=== PATIENT | female | born 1975 | race Caucasian/White ===

== ENCOUNTER 2016-06-20 16:05 | Emergency (ER) | payer MEDICAID ==
[2016-06-20] MEDS ORDERED: HYDROmorphone 2 MG/ML Syringe IM ONE (16:09)
[2016-06-20] MEDS ORDERED: Ketorolac 60 MG/2 ML SDV IM ONE (16:10)
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
== END 2016-06-20 16:31 | disposition home or self-care (01) ==
LOC: LB.ED 16:05
DX: T81.9XXA Unspecified complication of procedure, initial encounter (principal); F32.9 Major depressive disorder, single episode, unspecified; F17.210 Nicotine dependence, cigarettes, uncomplicated; Z98.890 Other specified postprocedural states; Z98.51 Tubal ligation status; Z88.0 Allergy status to penicillin
CPT/HCPCS: J1170; J1885; 96372; 99283-25

== ENCOUNTER 2017-03-26 20:23 | Emergency (ER) | payer MEDICAID ==
[2017-03-26] MEDS ORDERED: Acetaminophen/oxyCODONE 325-5 MG Tab ONE (20:40)
[2017-03-26 20:41] VITALS: BP 144/97
[2017-03-26] MEDS ORDERED: cefTRIAXone 1 GM Vial IM ONE (21:09)
--- NOTE | 2017-04-01 00:07 | ER ---
HISTORY OF PRESENT ILLNESS: A 41-year-old lady here with complaints of dental pain that is severe and swelling with drainage. The patient had her 6 front teeth pulled from the upper jaw last Tuesday which is several days ago. The patient states that she has been in pain since but more severely over the last couple of days. She has noticed more swelling in this part of her mouth, and she states that she is miserable. OBJECTIVE: GENERAL APPEARANCE: The patient is awake and alert. She is uncomfortable. VITAL SIGNS: Reviewed. They are normal. ORAL EXAM: The patient has significant swelling of the upper gum line where the previous dental extractions happened. By everting her upper lip slightly, there is moderate swelling all through this upper gum area. There is drainage as well that is slightly blood tinged coming from the holes where the teeth had been removed. This area is very tender to even light touch. DIAGNOSIS: An oral infection secondary to extraction of several teeth. TREATMENT PLAN: The patient will be given Toradol 60 mg IM. I will send her home with Percocet as well as antibiotics. The patient is to utilize a very soft diet and follow up with her dentist within the next day or two if her symptoms are not significantly improving. The patient has no further questions. CRS/MODL /[id number]
== END 2017-03-26 21:20 | disposition home or self-care (01) ==
LOC: LB.ED 20:23
DX: T81.4XXA Infection following a procedure, initial encounter (principal); K04.7 Periapical abscess without sinus
CPT/HCPCS: 96372; 99282; A9270; J0696

== ENCOUNTER 2017-08-27 01:28 | Emergency (ER) | payer SELFPAY ==
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
[2017-08-27 06:01] VITALS: BP 138/80
--- NOTE | 2017-08-28 22:54 | CT ---
DATE OF SERVICE: 08/27/2017 CLINICAL DATA: Possible syncope. UNENHANCED BRAIN CT: Multislice axial acquisition was performed. No priors. No masses or mass effect. No intracranial hemorrhage. No evidence of acute or subacute infarct. No osseous abnormalities. IMPRESSION: No acute intracranial abnormalities. [id number] [facility]
== END 2017-08-27 02:17 | disposition home or self-care (01) ==
LOC: LB.ED 01:28
DX: F43.0 Acute stress reaction (principal); F17.210 Nicotine dependence, cigarettes, uncomplicated; Z79.899 Other long term (current) drug therapy
CPT/HCPCS: 70450; 99283; 99285-25

== ENCOUNTER 2017-08-27 20:25 | Emergency (ER) | payer SELFPAY ==
[2017-08-27] MEDS ORDERED: Ketorolac 60 MG/2 ML SDV IM ONE (20:40)
[2017-08-27 21:21] VITALS: BP 133/119
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
== END 2017-08-27 20:55 | disposition home or self-care (01) ==
LOC: LB.ED 20:25
DX: S20.211A Contusion of right front wall of thorax, initial encounter (principal); F17.210 Nicotine dependence, cigarettes, uncomplicated; Z79.899 Other long term (current) drug therapy; Z88.0 Allergy status to penicillin; Z98.84 Bariatric surgery status; W19.XXXA Unspecified fall, initial encounter
CPT/HCPCS: 96372; 99283; A0425; A0429; J1885; 99282

== ENCOUNTER 2017-09-22 17:56 | Emergency (ER) | payer BC ==
[2017-09-22] MEDS: HYDROmorphone 2 MG/ML Syringe IVPUSH ONE ×2 (18:14→18:50)
[2017-09-22] MEDS ORDERED: Sodium Chloride 0.9% 10 ML Syringe FLUSH PRN (18:31)
[2017-09-22] MEDS ORDERED: Ondansetron 4 MG/2 ML SDV IVPUSH ONE (18:32)
[2017-09-22 18:43] VITALS: BP 129/67
[2017-09-22] MEDS ORDERED: Ondansetron 4 MG/2 ML SDV ONE (19:03)
--- OUTSIDE RECORDS SUMMARY | 2017-09-26 06:28 | XMSREPORT | Summary of Care ---
:1975 Author Organization and [facility] Address [address] [place] [address] Phone Care Team Providers Name Role Phone Ade Crews ESTRELLITA Primary Care Provider Stacey Shay MD Attributed Provider Reason for Visit Reason Comments Abdominal Pain pt states she has had right upper quad pain for the last week. went to the MD today and had a CT done today showing a gallbladder with sludge but no stone. Encounter Details Date Type Department Care Team Description 09/22/2017 - Hospital Encounter [place] Arielle Sander Rivas DO [address] [place] [address] Calculus of 09/24/2017 [facility] Dallin Huntley MD [address] [place] [address] gallbladder without Surg Unit cholecystitis [address] [place] [address] Allergies Active Allergy Reactions Severity Noted Date Comments Penicillin Other (Specify in Medium 05/21/2009 Patient unsure how she Comments) reacts to this. Had medalert bracelet as a child. as of this encounter Medications Prescription Sig. Disp. Refills Start Date End Date Status hydrOXYzine (ATARAX) Take one 10/05/2016 Active 25 mg tablet tablet nightly as needed for itching. DULoxetine (CYMBALTA) TAKE 1 1 08/17/2017 Active 60 mg capsule CAPSULE BY MOUTH ONCE A DAY cyclobenzaprine Take 1 tablet 30 tablet 0 09/24/2017 Active (FLEXERIL) 10 mg (10 mg) by 9 tabletIndications: mouth 3 times Chest wall pain a day naproxen (NAPROSYN) Take 1 tablet 180 tablet 4 09/24/2017 Active 500 mg (500 mg) by 9 tabletIndications: mouth Every 8 Chest wall pain hours as needed for moderate pain ibuprofen (MOTRIN) Take 800 mg 4 03/08/2016 Suspended 800 mg tablet by mouth 3 8 times a day as needed traMADol (ULTRAM) 50 2 11/02/2016 Discontinued mg tablet 8 gabapentin 2 10/21/2016 Discontinued (NEURONTIN) 400 mg 8 capsule cyclobenzaprine TAKE ONE 3 08/17/2017 Suspended (FLEXERIL) 10 mg TABLET BY 8 tablet MOUTH NIGHTLY as of this encounter Active Problems Problem Noted Date Calculus of gallbladder without cholecystitis 09/23/2017 Cholelithiases 09/23/2017 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 I reviewed single vision reading vs. Bifocal. Copy of prescription given. Pelvic pain in female 10/18/2012 Fibroids 11/22/2009 as of this encounter Social History Tobacco Use Types Packs/Day Years Used Date Current Every Day Smoker Cigarettes 0.25 Smokeless Tobacco: Never Used Comments: not ready Alcohol Use Drinks/Week oz/Week Comments No Sex Assigned at Date Recorded Not on file as of this encounter Last Filed Vital Signs Vital Sign Reading Time Taken Blood Pressure 100/59 09/24/2017 8:22 AM CDT Pulse 77 09/24/2017 8:22 AM CDT Temperature 36.9 C (98.5 F) 09/24/2017 8:22 AM CDT Respiratory Rate 20 09/24/2017 6:00 AM CDT Oxygen Saturation 93% 09/24/2017 8:22 AM CDT Inhaled Oxygen Concentration - - Weight 88.5 kg (195 lb 1.7 oz) 09/22/2017 11:55 PM CDT Height 163 cm (5' 4.17") 09/22/2017 11:55 PM CDT Body Mass Index 33.31 09/22/2017 11:55 PM CDT in this encounter Functional Status Functional Status Response Date of Assessment Is the person deaf or does he/she have serious difficulty No 09/22/2017 hearing? Is this person blind or does he/she have difficulty No 09/22/2017 seeing even when wearing glasses? Do you have difficulty with walking, balance, climbing Yes 09/23/2017 stairs, or had a fall in the last 3 months? Does the patient have difficulty dressing or bathing? No 09/23/2017 Because of a physical, mental, or emotional condition; No 09/23/2017 does this person have difficulty doing errands alone such as visiting a doctor's office or shopping? Cognitive Status Response Date of Assessment Because of a physical, mental, or emotional condition; No 09/23/2017 does this person have serious difficulty concentrating, remembering, or making decisions? as of this encounter Discharge Instructions The following attachments cannot be sent through Care Everywhere.GALLSTONES, WHAT ARE (DANISH)GALLSTONES, DISCHARGE INSTRUCTIONS (DANISH)PAIN, MEASURING YOUR (DANISH)in this encounter Progress Notes Dallin Valles MD - 09/24/2017 10:14 AM CDTFormatting of this note may be different from the original. DAILY PROGRESS NOTE Susana Meza is a 42yr old female admitted on 09/22/2017. SUBJECTIVE Pain is essentially unchanged. No nausea or vomiting. Tolerating solid food well. Does not think that any of her medications have really made much difference. White blood count remains normal. Total bilirubin remains normal at 0.2. OBJECTIVE Current Vital Signs Temp: 98.5 F (36.9 C) BP: 100/59 Pulse: 77 O2 Device: Room Air Resp: 20 Pain Ratin (out of 10) Weight: 88.5 kg (195 lb 1.7 oz) SpO2: 93 % Vitals Min/Max Last 24 Hours Vital Signs Min/Max (last 24 hours) Flowsheet Row Name Min Max Temp 97.6 F (36.4 C) 99 F (37.2 C) BP: Systolic 100 127 BP: Diastolic 59 79 Pulse 63 77 Resp 16 20 SpO2 93 % 99 % MAP (mm Hg) 76 mm Hg 99 mm Hg Intake and Output Last 24 Hours 09/23 0700 - 09/24 0659 In: 1495 Out: - Physical Exam General Appearance: alert, well appearing, and in no distress, oriented to person, place, and time Mental Status: alert, oriented to person, place, and time, normal mood, behavior , speech, dress, motor activity, and thought processes Chest: Patient remains exquisitely tender at the costal margin overlying the ribs and less so on theabdominal wall. This is hyperesthetic and tender to even light touch. Abdomen: Essentially soft. She has migratory pain on examination with even gentle palpation. Thereis no rigidity. No peritonitis. Mayo sign is negative. Diagnostics and Labs Labs (Last day) 09/24/17619 - 09/24/17619 CBC 09/24/17619 CBC WBC 4.0-11.0 (K/uL) 7.4 09/24/17619 - 09/24/17619 CHEMISTRY 09/24/17619 CHEMISTRY Bilirubin Total 0.2-1.2 (mg/dL) 0.2 Relevant diagnostic, laboratory and radiological studies have been reviewed in the Electronic Medical Record. ASSESSMENT & PLAN Problem List Active Problems: Calculus of gallbladder without cholecystitis Cholelithiases 1. No evidence of cholelithiasis on gallbladder ultrasound. Common bile duct is generous in size, but bilirubin is normal and no evidence of biliary obstruction. White blood count remains normal and there is no evidence of cholecystitis as an explanation for her pain. 2. Right lower chest wall pain of unclear etiology, hyperesthetic to examination. 3. Migratory abdominal discomfort to palpation, unclear etiology. 4. We'll discharge patient home on Flexeril and Naprosyn. We'll have patient follow-up with her primary care doctor, Dr. Rowe. 5. Activity and medication instructions are given to the patient who is agreeable to this plan. in this encounter Plan of Treatment Date Type Specialty Care Team Description 10/05/2017 Office Visit corner brace block machine operator Stacey Shay MD [address] [place] [address] 11/21/2017 Office Visit Gastroenterology Chema Honeycutt DO [address] [place] [address] Health Maintenance Due Date Last Done Comments HIV One Time Screening Ages 15-65 1989 Tetanus Vaccine 1992 Pneumococcal 19-64yr Medium Risk(Category 1) (1 of 1 - 1993 PPSV23) Pap Smear 06/25/1995 Lipid Screening 2014 Mammogram 2014 Influenza Vaccine (Season Ended) 2018 Diabetes Screening 09/23/2020 09/23/2017 as of this encounter Procedures Procedure Name Priority Date/Time Associated Comments Diagnosis WBC Routine 09/24/2017 6:20 Results for this AM CDT procedure are in the results section. BILIRUBIN TOTAL Routine 09/24/2017 6:20 Results for this AM CDT procedure are in the results section. LAB ONLY-COMPLETE Routine 09/23/2017 7:37 Results for this BLOOD COUNT WITH AM CDT procedure are in DIFFERENTIAL the results section. LIPASE Routine 09/23/2017 7:37 Results for this AM CDT procedure are in the results section. COMPREHENSIVE Routine 09/23/2017 7:37 Results for this METABOLIC PANEL AM CDT procedure are in the results section. COMPLETE BLOOD COUNT Routine 09/23/2017 7:37 Results for this WITH DIFFERENTIAL AM CDT procedure are in the results section. in this encounter Results BILIRUBIN TOTAL (09/24/2017 6:20 AM) Component Value Ref Range Bilirubin Total 0.2 0.2 - 1.2 mg/dL Specimen Performing Laboratory Blood [facility] [address] [place] [address] WBC (09/24/2017 6:20 AM) Component Value Ref Range WBC 7.4 4.0 - 11.0 K/uL Specimen Performing Laboratory Blood [facility] [address] [place] [address] US ABDOMEN LIMITED (09/23/2017 3:55 PM) Specimen Performing Laboratory PS360 Narrative Patient Name: SUSANA MEZA Date of :1975 Procedure: US ABDOMEN LIMITED Date of Service: 09/23/2017 RIGHT UPPER QUADRANT ULTRASOUND INDICATION: pain in RUQ and in lateral right chest wall COMPARISONS: Outside noncontrast CT of the abdomen and pelvis. TECHNIQUE: Right upper quadrant ultrasound was performed by the low pressure boiler operator. FINDINGS: The gallbladder is distended although no shadowing calculi, pericholecystic fluid or wall thickening is observed. The common bile duct is enlarged measuring over a centimeter in AP dimension. There is mild intrahepatic ductal dilation. IMPRESSION: Marked dilation of the common bile duct may reflect a distal obstructing stone or mass. No gallstones are identified. Finalized by: Lopez Jacobsen MD on 09/23/2017 4:31 PM Patient/Procedure Information: [facility] MRN/[place]: [id number] Order Number: [id number] Accession Number: [id number] Ordering Provider: THEODORA AG Authorizing Provider: THEODORA AG Procedure Note Interface, Radiantres - 09/23/2017 4:33 PM CDT Patient Name: SUSANA MEZA Date of : 1975 Procedure: US ABDOMEN LIMITED Date of Service: 09/23/2017 RIGHT UPPER QUADRANT ULTRASOUND INDICATION: pain in RUQ and in lateral right chest wall COMPARISONS: Outside noncontrast CT of the abdomen and pelvis. TECHNIQUE: Right upper quadrant ultrasound was performed by the low pressure boiler operator. FINDINGS: The gallbladder is distended although no shadowing calculi, pericholecystic fluid or wall thickening is observed. The common bile duct is enlarged measuring over a centimeter in AP dimension. There is mild intrahepatic ductal dilation. IMPRESSION: Marked dilation of the common bile duct may reflect a distal obstructing stone or mass. No gallstones are identified. Finalized by: Lopez Jacobsen MD on 09/23/2017 4:31 PM Patient/Procedure Information: [facility] MRN/[place]: [id number] Order Number: [id number] Accession Number: [id number] Ordering Provider: THEODORA AG Authorizing Provider: THEODORA AG LIPASE (09/23/2017 7:37 AM) Component Value Ref Range Lipase 16 5 - 80 U/L Specimen Performing Laboratory Blood [facility] [address] [place] [address] LAB ONLY-COMPLETE BLOOD COUNT WITH DIFFERENTIAL (09/23/2017 7:37 AM) Component Value Ref Range WBC 6.1 4.0 - 11.0 K/uL RBC 3.50 (L) 3.80 - 5.30 M/uL Hemoglobin 10.4 (L) 11.5 - 15.8 g/dL Hematocrit 32.6 (L) 35.0 - 45.0 % MCV 93.1 80.0 - 98.0 fL MCH 29.7 25.5 - 34.0 pg MCHC 31.9 31.5 - 36.5 g/dL RDW-CV 13.7 11.5 - 15.5 % RDW-SD 45.1 35.5 - 50.0 fl Platelet Count 337 140 - 400 K/uL MPV 9.2 8.5 - 12.0 fL Seg Neut Absolute 1.8 1.8 - 8.0 K/uL Lymphocytes Absolute 3.4 0.8 - 4.1 K/uL Monocytes Absolute 0.5 0.0 - 1.0 K/uL Eosinophils Absolute 0.4 0.0 - 0.7 K/uL Basophil Absolute 0.0 0.0 - 0.2 K/uL Neutrophils Abs. (Segs and Bands) 1800 /uL Neutrophils Percent 29.7 % Lymphocytes Percent 54.6 % Monocytes Percent 8.5 % Eosinophils Percent 6.7 % Basophil Percent 0.3 % Specimen Performing Laboratory Blood [facility] [address] [place] [address] COMPREHENSIVE METABOLIC PANEL (09/23/2017 7:37 AM) Component Value Ref Range Glucose 100 70 - 100 mg/dL BUN 5 (L) 6 - 22 mg/dL Creatinine 0.72 0.60 - 1.10 mg/dL BUN/Creatinine Ratio 6.9 (L) 10.0 - 25.0 Sodium 140 135 - 145 meq/L Potassium 3.5 3.5 - 5.3 meq/L Chloride 106 99 - 110 meq/L CO2 26 23 - 32 meq/L Anion Gap with K 12 6 - 20 meq/L Calcium 8.5 8.5 - 10.5 mg/dL Protein Total 5.9 (L) 6.0 - 8.2 g/dL Albumin 3.5 3.5 - 5.0 g/dL Alkaline Phosphatase 76 30 - 150 U/L AST - SGOT 25 0 - 35 U/L ALT - SGPT 20 0 - 55 U/L Bilirubin Total 0.2 0.2 - 1.2 mg/dL Corrected Calcium 8.9 8.5 - 10.5 mg/dL Age 42 Years eGFR Non- 88 >=60 mL/min/1.73m2 eGFR >90 >=60 mL/min/1.73m2 Comment: The estimated Glomerular Filtration Rate (eGFR) is calculated using the Abbreviated Modification of Diet in Renal Disease (MDRD) equation.The eGFR is reported out in mL/min. per 1.73 meter squared units. The National Kidney Foundation action value for patients without a diagnosis of chronic kidney disease is a eGFR of < 60 mL/min per 1.73M2. The National Kidney Foundation stages listed below apply to patients with a diagnosis of chronic kidney disease (defined as either kidney damage or eGFR < 60 mL/min/1.73 m2 for 3 months).Kidney da mage is defined as pathologic abnormalities or markers of damage, including abnormalities in blood or urine tests or imaging studies.These stages apply to adults.No standardized classification has yet been established for pediatric patients. Stage eGFR in ml/min per 1.73M2 1 Kidney abnormality with normal or increased eGFR >or=90 2 Kidney abnormality with mild decreased eGFR 60-89 3 Moderately decreasedeGFR 30-59 4 Severely decreased eGFR 15-29 5 Kidney failure <15 The eGFR varies with age, sex, race and body size and normally decreases with age. Specimen Performing Laboratory Blood [facility] [address] [place] [address] COMPLETE BLOOD COUNT WITH DIFFERENTIAL (09/23/2017 7:37 AM) Specimen Performing Laboratory Blood Narrative The following orders were created for panel order COMPLETE BLOOD COUNT WITH DIFFERENTIAL. Procedure Abnormality Status --------- ------ LAB ONLY-COMPLETE BLOOD ...[[id number]]AbnormalFinal result Please view results for these tests on the individual orders. in this encounter Visit Diagnoses Diagnosis Biliary colic - Primary Calculus of gallbladder without mention of cholecystitis or obstruction Nausea Nausea alone Chest wall pain Painful respiration Calculus of gallbladder without cholecystitis Calculus of gallbladder without mention of cholecystitis or obstruction Cholelithiases Calculus of gallbladder without mention of cholecystitis or obstruction in this encounter Administered Medications Medication Order MAR Action Action Date Dose Rate Site cyclobenzaprine (FLEXERIL) tablet 10 mg Given 09/23/2017 19:53 CDT 10 mg 10 mg, Oral, Three times a day, First dose on Tue09/23/17 at 2100, Until Discontinued Given 09/24/2017 08:22 CDT 10 mg HYDROmorphone (DILAUDID) injection solution (conc: Given 09/23/2017 21:45 CDT 1 mg 1 mg/mL) 0.5-1 mg 0.5-1 mg, IV, Every two hours prn, Starting Tue09/23/17 at 0717, Until Discontinued, severe pain, 1 mL Given 09/24/2017 01:32 CDT 1 mg Given 09/24/2017 06:08 CDT 1 mg ketorolac (TORADOL) intravenous injection 30 mg Given 09/23/2017 19:52 CDT 30 mg 30 mg, IV, Every six hours, 18 doses, First dose on Tue09/23/17 at 1920, Last dose on Tue09/28/17 at 0120, 1 mL Given 09/24/2017 01:26 CDT 30 mg Given 09/24/2017 08:22 CDT 30 mg nicotine (NICOTROL) 10 mg inhalation system Given 09/23/2017 20:25 CDT Oral, As often as necessary prn, Starting Tue09/23/17 at 2003, Until Discontinued, smoking cessation, Recommended usage is 6 to 16 cartridges per day. Best effect is achieved by frequent continuous puffing over 20 minutes. sodium chloride 0.9% IV solution New Bag 09/23/2017 01:02 CDT 125 mL/hr IV, at 125 mL/hr, Continuous, Starting Gracie 09/22/17 at 2330, Until Discontinued, 1,000 mL New Bag 09/23/2017 18:59 CDT 125 mL/hr Medication Order MAR Action Action Date Dose Rate Site HYDROmorphone (DILAUDID) injection Given 09/22/2017 23:35 CDT 1 mg solution (conc: 1 mg/mL) 0.5-1 mg 0.5-1 mg, IV, Every three hours prn, 3 doses, Starting Gracie 09/22/17 at 2324, Until Discontinued, severe pain, 1 mL Given 09/23/2017 02:44 CDT 0.5 mg Given 09/23/2017 06:46 CDT 1 mg HYDROmorphone (DILAUDID) injection solution (conc: Given 09/22/2017 21:25 CDT 1 mg 1 mg/mL) 1 mg 1 mg, IV, Now, 1 dose, Gracie 09/22/17 at 2115, 1 mL ibuprofen (MOTRIN) tablet 800 mg Given 09/23/2017 02:44 CDT 800 mg 800 mg, Oral, Every six hours prn, Starting Gracie 09/22/17 at 2324, Until Tue09/23/17 at 0718, mild pain, moderate pain, Maximum adult dose should not exceed 3200 mg/day. Tablet should not be crushed or chewed. ketorolac (TORADOL) intravenous injection 15 mg Given 09/23/2017 08:07 CDT 15 mg 15 mg, IV, Every six hours, 20 doses, First dose on Tue09/23/17 at 0720, Last dose on Tue09/28/17 at 0120, 1 mL Given 09/23/2017 14:11 CDT 15 mg nicotine (NICODERM) 14mg/24hr Applied 09/22/2017 23:34 CDT 14 mg Right Shoulder TD patch 14 mg (1 patch), Transdermal, Daily, First dose on Gracie 09/22/17 at 2310, Until Discontinued, Administer over 24 Hours in this encounter
== END 2017-09-22 19:01 ==
LOC: LB.ED 17:56
DX: Z53.21 Procedure and treatment not carried out due to patient leaving prior to being seen by health care provider (principal)
CPT/HCPCS: 96374; 96375; 96376; 99284-25; A0425; A0429; J1170; J2405

== ENCOUNTER 2017-11-09 16:42 | Emergency (ER) | payer BC ==
[2017-11-10] MEDS ORDERED: cefTRIAXone 1 GM Vial IM ONE (00:40)
[2017-11-10] MEDS ORDERED: cefTRIAXone 1 GM Vial ONE (00:45)
[2017-11-10] MEDS ORDERED: Acetaminophen/HYDROcodone 325-5 MG Tab PO ONE (00:58)
[2017-11-10] MEDS ORDERED: Acetaminophen/HYDROcodone 325-5 MG Tab ONE (01:07)
--- NOTE | 2017-11-10 02:03 | ER ---
HPI: A 42-year-old lady here with complaints of left lower leg pain that has been ongoing for about 3 days. She is pointing to an area right behind the heel and this radiates up into the calf muscle. Now she starting to have pain on the medial side of the left thigh. She feels chilled occasionally. She denies any recent injuries to this area. She is concerned about a blood clot. OBJECTIVE: GENERAL APPEARANCE: The patient is awake and alert. No obvious distress. VITAL SIGNS: Reviewed. She does have a low-grade temp. Physical exam, examining the left leg reveals the skin is intact. There is diffuse tenderness involving the medial side of the heel area as well as the posterior aspect of the lower leg radiating up through the calf muscle and to the medial side of the left thigh. The skin is intact. I do not see any obvious redness or swelling. LABS: Include a CBC showing a slightly elevated white count of 11.5. D-dimer is normal. Comprehensive metabolic panel shows just a slightly elevated potassium of 3.4, otherwise normal test results. At this point, I re-evaluated the patient and looking at the posterior aspect of her lower leg, I can see an erythematous macular rash. This area is warm to touch. I did not notice this earlier. The patient states it has been getting worse. DIAGNOSIS: Cellulitis. TREATMENT PLAN: Rocephin 1 g will be given IM. I also will give her clindamycin 300 mg p.o. tonight, and she can have one pill to take in the morning plus I will send a prescription home with her for an another week supply. She is to go home, rest, elevate her affected leg, and apply heat frequently. She is to monitor her symptoms closely. If she does not feel she is starting to see improvement tomorrow or if her condition should start to feel worse, she is to come back in for recheck tomorrow. If things are starting to get better, her recheck would be on Tuesday, it would be reasonable. KRYSTINA/MODL /[id number]
[2017-11-10 07:52] VITALS: BP 139/90
== END 2017-11-10 01:15 | disposition home or self-care (01) ==
LOC: LB.ED 16:42
DX: L03.116 Cellulitis of left lower limb (principal); Z88.0 Allergy status to penicillin; Z79.899 Other long term (current) drug therapy
CPT/HCPCS: 36415; 80053; 85025; 85379; 96372; 99283-25; A9270-GY; J0696

== ENCOUNTER 2018-05-02 12:37 | Emergency (ER) | payer BC ==
[2018-05-02 15:24] VITALS: BP 109/81
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
--- NOTE | 2018-05-02 17:19 | CT ---
DATE OF SERVICE: 05/02/18 CLINICAL DATA: Confusion UNENHANCED BRAIN CT: Multislice acquisition through the brain without IV contrast was performed. No priors. Motion artifact degrades image quality. No masses or mass effect. No intracranial hemorrhage. No evidence of acute or subacute infarct. No osseous abnormalities. IMPRESSION: No acute intracranial abnormalities. [id number] [facility]
== END 2018-05-02 15:40 ==
LOC: LB.ED 12:37
DX: R41.0 Disorientation, unspecified (principal); R26.9 Unspecified abnormalities of gait and mobility; Z88.0 Allergy status to penicillin; Z79.899 Other long term (current) drug therapy
CPT/HCPCS: 36415; 70450; 80053; 80307; 81001; 82607; 82746; 83735; 85025; 99285-25

== ENCOUNTER 2018-05-22 23:45 | Emergency (ER) | payer BC ==
[2018-05-22] MEDS ORDERED: Sulfamethoxazole/Trimethoprim 800-160 MG Tab ONE (23:55)
[2018-05-23 00:04] VITALS: BP 129/78
[2018-05-23] MEDS ORDERED: cefTRIAXone 1 GM Vial IM ONE (00:49)
[2018-05-23] MEDS ORDERED: cefTRIAXone 2 GM Vial ONE (00:59)
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
== END 2018-05-23 01:00 | disposition home or self-care (01) ==
LOC: LB.ED 23:45
DX: L03.011 Cellulitis of right finger (principal); F41.9 Anxiety disorder, unspecified; F32.9 Major depressive disorder, single episode, unspecified; Z79.899 Other long term (current) drug therapy; Z88.0 Allergy status to penicillin
CPT/HCPCS: 36415; 85025; 99283; A9270-GY; J0696

== ENCOUNTER 2021-01-28 23:13 | Emergency (ER) | payer BC ==
[2021-01-28] MEDS ORDERED: Acetaminophen/oxyCODONE 325-5 MG Tab ONE (23:40)
[2021-01-28] MEDS ORDERED: Hydrocortisone/Neomycin/Polymyxin B Otic Susp 10 ML Bottle ONE (23:40)
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
== END 2021-01-28 23:43 | disposition home or self-care (01) ==
LOC: LB.ED 23:13
DX: H66.011 Acute suppurative otitis media with spontaneous rupture of ear drum, right ear (principal); Z88.0 Allergy status to penicillin
CPT/HCPCS: 99282; A9270

== ENCOUNTER 2024-06-11 23:26 | Emergency (ER) | payer MEDICAID ==
[2024-06-11] MEDS: Aspirin 81 MG Tab.Chew PO ONE (23:31)
[2024-06-11] MEDS: Nitroglycerin 0.4 MG Tab.SL SL ONE (23:31)
[2024-06-11] MEDS: Morphine 4 MG/ML VIAL IVPUSH ONE (23:50)
[2024-06-12 00:17] LABS: HEMATOCRIT 37.1 % (37.0-47.0); HEMOGLOBIN 11.7 g/dL (11.5-16.5); MEAN CORPUSCULAR HEMOGLOBIN 28.7 pg (27.0-32.0); MEAN CORPUSCULAR HGB CONC 31.5 g/dL (31.0-35.0); RED BLOOD CELL COUNT 4.07 M/uL (3.80-5.80); RED CELL DISTRIBUTION WIDTH 14.7 % (11.0-16.0); WHITE BLOOD CELL COUNT,WBC 13.6 K/uL (4.0-11.0)
[2024-06-12] MEDS ORDERED: Sodium Chloride 0.9% 10 ML Syringe FLUSH PRN (00:30)
[2024-06-12] MEDS: Ketorolac 15 MG/ML SDV IVPUSH SCH (00:38)
[2024-06-12] MEDS: Ketorolac 15 MG/ML SDV ONE (00:39)
[2024-06-12 00:42] LABS: ALANINE AMINOTRANSFERASE,ALT 59 U/L (12-78); ALBUMIN 3.2 g/dL (3.4-5.0); ALKALINE PHOSPHATASE 102 U/L (46-116); ANION GAP 13.2 mmol/L (5.0-15.0); ASPARTATE AMNIOTRANSFERASE,AST 143 U/L (15-37); BILIRUBIN TOTAL 0.3 mg/dL (0.0-1.0); BLOOD UREA NITROGEN,BUN 10 mg/dL (8-26); BUN/CREATININE RATIO 13.2 (6-25); CALCIUM 8.1 mg/dL (8.5-10.1); CARBON DIOXIDE,CO2 26.7 mmol/L (21.0-32.0); CHLORIDE,CL 106 mmol/L (98-107); CREATININE 0.76 mg/dL (0.55-1.02); EST CRCL DRUG DOSING (CG) 77.32 mL/min; ESTIMATED GFR 96 mL/min (>60); GLUCOSE RANDOM 109 mg/dL (74-100); POTASSIUM,K 3.9 mmol/L (3.5-5.1); PROTEIN TOTAL,TP 6.5 g/dL (6.4-8.2); SODIUM,NA 142 mmol/L (136-145)
[2024-06-12 00:52] LABS: C-REACTIVE PROTEIN < 5.0 mg/L (<5.0)
[2024-06-12] MEDS: Sodium Chloride 0.9% 50 ML SDV FLUSH SCH (01:13)
[2024-06-12] MEDS: Iopamidol 612 MG/ML 100 ML Bottle IV PRN (01:13)
[2024-06-12] MEDS: metroNIDAZOLE/Normal Saline 500 MG in Premix Bag 1 BAG IV ONE (01:26)
[2024-06-12] MEDS: Morphine 4 MG/ML VIAL IVPUSH ONE (02:27)
[2024-06-12] MEDS: Ciprofloxacin in D5W 400 MG in Premix Bag 1 BAG IV ONE (02:35)
[2024-06-12] MEDS: Morphine 4 MG/ML VIAL ONE (02:37)
[2024-06-12] MEDS: Ketorolac 15 MG/ML SDV IVPUSH ONE (03:37)
[2024-06-12] MEDS: Ketorolac 15 MG/ML SDV IM ONE (03:37)
[2024-06-12] MEDS: Ondansetron 4 MG/2 ML SDV IVPUSH ONE (03:39)
[2024-06-12 06:27] VITALS: BP 118/85; PULSE 67
== END 2024-06-12 08:00 | disposition home or self-care (01) ==
LOC: LB.ED 23:34
DX: K80.50 Calculus of bile duct without cholangitis or cholecystitis without obstruction (principal); R74.8 Abnormal levels of other serum enzymes; Z88.0 Allergy status to penicillin; Z79.899 Other long term (current) drug therapy
CPT/HCPCS: 36415; 74177; 80053; 83690; 84484; 85027; 85379; 86140; 93005; 96365; 96367; 96375; 96376; 99285; A9270; J0744; J1836; J1885; J2270; J2405; J3490; Q9967; 93010; 99284

== ENCOUNTER 2024-07-19 20:35 | Observation (INO) | payer SELFPAY ==
[2024-07-19] MEDS ORDERED: Sodium Chloride 0.9% 10 ML Syringe FLUSH PRN (20:51)
[2024-07-19] MEDS: Morphine 4 MG/ML VIAL IVPUSH ONE (21:25)
[2024-07-19] MEDS: Ondansetron 4 MG/2 ML SDV IVPUSH ONE (21:27)
[2024-07-19] MEDS: HYDROmorphone 2 MG/ML Syringe IVPUSH ONE (21:42)
[2024-07-19 22:02] LABS: HEMATOCRIT 38.2 % (37.0-47.0); HEMOGLOBIN 12.4 g/dL (11.5-16.5); MEAN CORPUSCULAR HEMOGLOBIN 28.3 pg (27.0-32.0); MEAN CORPUSCULAR HGB CONC 32.5 g/dL (31.0-35.0); MEAN PLATELET VOLUME 9.6 fL (6.0-10.0); RED BLOOD CELL COUNT 4.38 M/uL (3.80-5.80); RED CELL DISTRIBUTION WIDTH 14.9 % (11.0-16.0); WHITE BLOOD CELL COUNT,WBC 12.6 K/uL (4.0-11.0)
[2024-07-19 22:19] LABS: A/G RATIO 0.9 (0.8-2.0); ALANINE AMINOTRANSFERASE,ALT 169 U/L (12-78); ALBUMIN 3.2 g/dL (3.4-5.0); ALKALINE PHOSPHATASE 204 U/L (46-116); ANION GAP 16.7 mmol/L (5.0-15.0); ASPARTATE AMNIOTRANSFERASE,AST 189 U/L (15-37); BILIRUBIN TOTAL 2.2 mg/dL (0.0-1.0); BLOOD UREA NITROGEN,BUN 13 mg/dL (8-26); BUN/CREATININE RATIO 18.8 (6-25); CALCIUM 8.3 mg/dL (8.5-10.1); CARBON DIOXIDE,CO2 24.4 mmol/L (21.0-32.0); CHLORIDE,CL 105 mmol/L (98-107); CREATININE 0.69 mg/dL (0.55-1.02); EST CRCL DRUG DOSING (CG) 80.69 mL/min; ESTIMATED GFR 106 mL/min (>60); GLUCOSE RANDOM 101 mg/dL (74-100); POTASSIUM,K 3.1 mmol/L (3.5-5.1); PROTEIN TOTAL,TP 6.8 g/dL (6.4-8.2); SODIUM,NA 143 mmol/L (136-145)
[2024-07-19 22:29] LABS: APPEARANCE,URINE CLEAR (CLEAR); BILIRUBIN,URINE SMALL (NEGATIVE); COLOR,URINE YELLOW; GLUCOSE,URINE NEGATIVE (NEGATIVE); KETONES,URINE NEGATIVE (NEGATIVE); LEUKOCYTE ESTERASE,URINE NEGATIVE (NEGATIVE); NITRITE,URINE NEGATIVE (NEGATIVE); OCCULT BLOOD,URINE NEGATIVE (NEGATIVE); PROTEIN,URINE NEGATIVE (NEGATIVE)
[2024-07-19 22:36] LABS: TROPONIN I HIGH SENSITIVITY < 4.0 pg/ml (<=60.4)
[2024-07-19] MEDS: Ketorolac 15 MG/ML SDV IM ONE (22:48)
[2024-07-19] MEDS: Sodium Chloride 0.9% 1,000 ML IV SCH (23:49)
[2024-07-19] MEDS: metroNIDAZOLE/Normal Saline 500 MG in Premix Bag 1 BAG IV SCH (23:50)
[2024-07-19] MEDS: Ketorolac 15 MG/ML SDV IVPUSH ONE (23:52)
[2024-07-20] MEDS: Ciprofloxacin in D5W 400 MG in Premix Bag 1 BAG IV SCH (01:03)
[2024-07-20] MEDS: Ciprofloxacin in D5W 200 ML ONE (07:24)
[2024-07-20] MEDS: HYDROmorphone 2 MG/ML Syringe IVPUSH PRN (07:28)
[2024-07-20 07:57] LABS: HEMATOCRIT 32.6 % (37.0-47.0); HEMOGLOBIN 10.7 g/dL (11.5-16.5); MEAN CORPUSCULAR HEMOGLOBIN 28.5 pg (27.0-32.0); MEAN CORPUSCULAR HGB CONC 32.8 g/dL (31.0-35.0); MEAN PLATELET VOLUME 9.8 fL (6.0-10.0); RED BLOOD CELL COUNT 3.75 M/uL (3.80-5.80); RED CELL DISTRIBUTION WIDTH 14.8 % (11.0-16.0); WHITE BLOOD CELL COUNT,WBC 12.2 K/uL (4.0-11.0)
[2024-07-20] MEDS ORDERED: Ciprofloxacin in D5W 400 MG in Premix Bag 1 BAG IV SCH (08:00)
[2024-07-20 09:08] LABS: A/G RATIO 0.8 (0.8-2.0); ALBUMIN 2.6 g/dL (3.4-5.0); ANION GAP 12.3 mmol/L (5.0-15.0); BILIRUBIN TOTAL 3.6 mg/dL (0.0-1.0); BUN/CREATININE RATIO 15.9 (6-25); C-REACTIVE PROTEIN 50.5 mg/L (<5.0); CALCIUM 7.8 mg/dL (8.5-10.1); CARBON DIOXIDE,CO2 25.9 mmol/L (21.0-32.0); CREATININE 0.69 mg/dL (0.55-1.02); EST CRCL DRUG DOSING (CG) 80.69 mL/min; POTASSIUM,K 3.2 mmol/L (3.5-5.1); PROTEIN TOTAL,TP 5.7 g/dL (6.4-8.2)
[2024-07-20] MEDS: Potassium Chloride Riders 10 MEQ in Premix Bag 1 BAG IV ONE (11:05)
[2024-07-20] MEDS ORDERED: NS with KCl 40mEq 1,000 ML IV SCH (11:30)
[2024-07-20] MEDS: NS with KCl 40mEq 1,000 ML IV SCH (11:40)
[2024-07-20 11:53] VITALS: BP 128/71; PULSE 70
== END 2024-07-20 14:02 ==
LOC: LB.ED 20:41 → LB.MS 23:30
PROVIDERS: ADMIT Surgery; ATTEND Surgery
DX: K80.00 Calculus of gallbladder with acute cholecystitis without obstruction (principal); E87.6 Hypokalemia; F32.A Depression, unspecified; F41.9 Anxiety disorder, unspecified; Z79.899 Other long term (current) drug therapy; Z88.0 Allergy status to penicillin
CPT/HCPCS: 36415; 74176; 80053; 81003; 83690; 84484; 85027; 86140; 93005; 93010; 96361; 96365; 96366; 96367; 96374; 96375; 96376; 99223; 99239; 99285; 99285-25; A0425; A0428; G0378; J0744; J1171; J1836; J1885; J2270; J2405; J3480; J7030

== ENCOUNTER 2025-01-29 17:35 | Emergency (ER) | payer MEDICAID ==
[2025-01-29] MEDS: Orphenadrine 60 MG/2 ML Inj IM ONE (18:30)
[2025-01-29] MEDS: Ketorolac 15 MG/ML SDV IM ONE (18:30)
[2025-01-29] MEDS: Acetaminophen/HYDROcodone 325-5 MG Tab PO ONE (19:10)
[2025-01-29 19:26] VITALS: BP 116/79; PULSE 71
== END 2025-01-29 19:19 | disposition home or self-care (01) ==
LOC: LB.ED 17:35
DX: S29.9XXA Unspecified injury of thorax, initial encounter (principal); F17.200 Nicotine dependence, unspecified, uncomplicated; Z98.84 Bariatric surgery status; Z88.0 Allergy status to penicillin; W10.9XXA Fall (on) (from) unspecified stairs and steps, initial encounter
CPT/HCPCS: 71101-RT; 96372; 99283; A9270-GY; J1885; J2360